=== PATIENT | male | born 1985 | race Caucasian/White ===

== ENCOUNTER 2024-07-26 10:58 | Emergency (ER) | payer OTHER, SELFPAY ==
[2024-07-26 11:01] VITALS: BP 135/96
--- NOTE | 2024-07-26 12:01 | ED.GENMED ---
History of Present Illness
General
Chief Complaint: Musculo-Skeletal Complaint
Source: patient
Exam Limitations: none
Time Seen by Provider: 07/26/24 11:39
Nursing documentation reviewed up to this point in time: agreed with
History of Present Illness
History of Present Illness:
39 yr old male brought by family for evaluation. Patient was lying in [place] yesterday and was working on a car and injured his right fourth finger. He went to the local ER and was diagnosed with open fracture of the distal phalanx of
the right fourth finger. He was given tetanus and prescription for Keflex and oxycodone but drove throughout the night and presents here because of pain.Pt has not taken anything for pain. c/o of pain to right 4th finger. Patient's original
scripts were sent to a pharmacy [place] since after he was there at the time however pharmacy was closed in [place] and he was not able to get his scripts.
His Godson is assisting with translation.
Review of Systems
Review of Systems
Allergies reviewed?: Yes
All Other Systems: ROS reviewed and negative except as documented in HPI and ROS
Constitutional: Reports no symptoms; Denies fever, fatigue or chills
Musculoskeletal: Reports other (right 4th finger injury/pain )
Skin: Reports no symptoms
Neurological: Reports no symptoms
Psychiatric: Reports no symptoms
Phy Exam
General Physical Exam
General Presentation: no apparent distress
General age: appears stated age
General Skin: warm and dry
General Habitus: normal
General Mental: alert
General Hydration: appears well hydrated
Musculoskeletal Exam
Musculoskeletal Exam: other (RUE with strong pulses + skin ambutation to distal 4th finger no obvious swelling no purulent drainage no erythema no lymphangitis)
Skin Exam
Skin Exam: normal color and warm/dry
Psychiatric Exam
Psychiatric Exam: normal mood/affect
Course
Orders/Labs/Results
Orders:
Orders
07/26/24 11:59
Finger(s)/Thumb 2 View Rt [CR Finger(s)/thumb Min 2 Vw Rt] Urgent
Comment:
Reason For Exam: trauma
Indicate Which Finger:: Ring Finger
07/26/24 12:00
Cephalexin Monohydrate [Keflex] 500 mg PO NOW STA
Ketorolac [Toradol] 30 mg IM NOW STA
Oxycodone/Acetaminophen [Percocet 5/325] 1 tablet PO NOW STA
07/26/24 13:18
Aluminium Finger Splint Right ONCE
Vital Signs
Initial and Last Documented VS:
Initial Vital Signs
Temp Pulse Resp BP Pulse Ox
98.2 F 81 18 135/96 98
07/26/24 11:01 07/26/24 11:01 07/26/24 11:01 07/26/24 11:01 07/26/24 11:01
Last Documented Vital Signs
Temp Pulse Resp BP Pulse Ox
98.2 F 81 18 135/96 98
07/26/24 11:01 07/26/24 11:01 07/26/24 11:01 07/26/24 11:01 07/26/24 11:01
MDM/Problems Addressed
Differential Diagnosis Includes:
Not limited to fracture, pain
MDM/Problems Addressed:
Patient as document is a 39-year-old male who was in [place] yesterday and working on a car he sustained open fracture to his right hand fourth finger. He drove throughout the night and presented here for pain. He was given prescriptions
but was sent to a pharmacy [place] including Keflex and oxycodone. He was unable to get this filled obviously and presented here for also pain. I remove the outer dressing and reclean the wound. X-ray does show a fracture through the
fourth distal phalanx consistent with open fracture. This was irrigated with copious jason normal saline antibiotic nonstick dressing sterile dressing aluminum splint. Will DC with outpatient hand follow-up .
Will write for prescriptions for pain medicine and keflex. he did receive tetanus last night.
*Radiology
Radiology exam reviewed: radiology read reviewed
*Critical Care Note
Total Time (30-74mins, 75-104mins- exclusive of procedures): Not Applicable
ED Attending Note
-
Portions of this chart may have been created with voice recognition software.� Occasional wrong word or��sound alike� substitutions may have occurred due to the inherent limitations of voice recognition software.
Discharge Plan
Departure
Patient Disposition: Home (Routine Discharge)
Date of Disposition: 07/26/24
Time of Disposition: 13:19
Patient with high blood pressure during this ER visit?: Yes
Condition: Fair
Covid-19: Not Applicable
Discharge Problem:
open fracture 4th finger
Instructions: Finger Fracture ED, BLOOD PRESSURE
Prescriptions:
New
cephalexin 500 mg capsule
500 mg PO Q6H Qty: 20 0RF
oxycodone 5 mg capsule
5 mg PO Q6H PRN (Reason: Pain) Qty: 10 0RF
Referrals:
Jenny Irizarry NP [Family Provider] -
Luís George MD [Active] -
Ray Burr MD [Active] -
Activity Restrictions/Additional Instructions:
As discussed keep wound clean and dry. Call orthopedics/hand specialist tomorrow for an appointment in the next 1 to 2 days. Wear splint for support. Prescriptions were sent to the pharmacy
Take antibiotic as directed every 6 hours for the next 5 days
Patient may alternate between ibuprofen [id number] and Tylenol for discomfort however if needed a stronger narcotic prescription was sent to the pharmacy to take only as directed. No driving or drink alcohol this medication.
Interventions
Interventions:
*Risk Screen - Suicide Last Done: 07/26/24 11:01
*General Assessment Last Done: 07/26/24 11:01
*Neglect/Abuse Screening Last Done: 07/26/24 11:01
Discharge Date and Time
Print Language: OCCITAN
[2024-07-26] MEDS: KEFLEX 500 MG PO (12:05)
[2024-07-26] MEDS: PERCOCET 5/325 1 TABLET PO (12:06)
[2024-07-26] MEDS: TORADOL 30 MG IM (12:06)
== END 2024-07-26 14:09 | disposition home or self-care (01) ==
LOC: EMR 10:58
PROVIDERS: EMERGENCY PHYSICIAN Emergency Medicine; FAMILY PHYSICIAN Nurse Practitioner Family
DX: S62.634B Displaced fracture of distal phalanx of right ring finger, initial encounter for open fracture (principal); X58.XXXA Exposure to other specified factors, initial encounter
CPT/HCPCS: 29130; 96372; 99284; 73140